=== PATIENT | male | born 1950 | race Caucasian/White ===

== ENCOUNTER 2018-06-14 07:44 | Observation (INO) | payer OTHER ==
--- NOTE | 2018-06-14 08:38 | RAD ---
Exam: Chest one view HISTORY:Altered mental status Comparison: None FINDINGS: Lungs: Mild pleural/parenchymal density at the inferior left chest Cardiac silhouette: Normal size Pulmonary vessels: Normal Pleural Spaces: Mild pleural-based density at the inferior left chest Pneumothorax: None Osseous abnormalities: None of acuity. IMPRESSION: Mild left basilar density, which could relate small volume pleural fluid with adjacent at electasis and/or pneumonia. Alternatively this could relate to an area of pleural scarring. Correlation with prior imaging would be helpful to evaluate for stability. Otherwise follow-up 2 view chest series may be obtained to document resolution.
[2018-06-14 08:39] LABS: ALT (SGPT) 16 U/L (8-55); AST (SGOT) 19 U/L (5-34); Albumin 3.7 g/dL (3.4-4.8); Alkaline Phosphatase 51 U/L (40-150); Anion Gap 10 mmol/L (10-20); BUN (Urea Nitrogen) 13 mg/dL (8.4-25.7); Bilirubin, Total 0.8 mg/dL (0.2-1.2); Calc. Creatinine Clearance 0 mL/min (70-130); Calcium 8.7 mg/dL (7.8-10.44); Carbon Dioxide 26 mmol/L (23-31); Chloride 102 mmol/L (98-107); Estimated GFR-MDRD 47; Globulin 2.4 g/dL (2.4-3.5); Glucose 103 mg/dL (80-115); Protein, Total 6.1 g/dL (5.8-8.1); Sodium 134 mmol/L (136-145)
[2018-06-14 08:47] LABS: #Eosinphils 0.1 thou/uL (0.0-0.7); #Lymphocytes 1.1 thou/uL (1.20-3.40); #Monocytes 0.7 thou/uL (0.11-0.59); #Neutrophils 5.6 thou/uL (1.40-6.50); %Basophils 0.4 % (0.0-1.0); %Eosinophils 0.9 % (0.0-10.0); %Lymphocytes 14.6 % (21.0-51.0); %Neutrophils 75.1 % (42.0-75.0); Hemoglobin 15.4 g/dL (14.0-18.0); Mean Corpuscular HGB CONC 32.3 g/dL (32.0-36.0); Mean Corpuscular Hemoglobin 30.1 pg (27.0-31.0); Mean Corpuscular Volume 93.2 fL (78.0-98.0); Mean Platelet Volume 6.8 fL (7.4-10.4); Platelet Count 165 thou/uL (130-400); RBC Distribution Width 14.1 % (11.5-14.5); Red Blood Cell (RBC) Count 5.11 mill/uL (4.70-6.10); White Blood Cell (WBC) Count 7.5 thou/uL (4.8-10.8)
--- NOTE | 2018-06-14 08:57 | CT ---
CT Brain WO Con: 06/14/2018 8:17 AM CLINICAL HISTORY: Altered mental status. COMPARISON: None. FINDINGS: Hemorrhage: None. Ventricular system: Normal in size and morphology for the patient's age. Cerebral parenchyma: Normal Midline shift: None. Mass: No mass effect. Calvarium: Normal. Visualized Paranasal sinuses: Scattered mild inflammatory mucosal thickening. IMPRESSION: No acute intracranial abnormalities.
[2018-06-14] MEDS ORDERED: hydrALAZINE 20 MG/ML VIAL SLOW IVP PRN (09:44)
[2018-06-14] MEDS ORDERED: levETIRAcetam 500 MG TAB PO SCH (09:45)
[2018-06-14] MEDS ORDERED: Ondansetron PF 4 MG/2 ML Vial IVP PRN (09:48)
[2018-06-14] MEDS ORDERED: Bisacodyl 5 MG TAB PO PRN (09:48)
--- NOTE | 2018-06-14 10:22 | HP ---
PRIMARY CARE PROVIDER: Tash Brie Darling in [place], [place]. CHIEF COMPLAINT: Seizure. HISTORY OF PRESENT ILLNESS: Mr. Epperson is a pleasant 67-year-old gentleman, who was seen at [facility] on June 14, 2018. He is accompanied by his in the emergency room. He has a past medical history of hypertension and on-and-off headaches. Today, around 6:30 a.m., his felt him thrashing around in the bed. He occasionally has leg cramps, and she initially assumed that it was secondary to leg cramps. The tonic-clonic activity continued. She turned the light on and found that he was lying face down in the pillow, convulsing. She turned his head to one side and found that his eyes had rolled back and he was biting his tongue. He also urinated in the bed. The activity lasted 1-2 minutes. Following that, he was confused, did not know who he was or who his was. EMS was called. The postictal confusion lasted about 30 minutes. Mr. Epperson currently denies any chest pain, shortness of breath, fevers, or chills. He denies any nausea or vomiting. REVIEW OF SYSTEMS: All other systems reviewed and found to be negative. PAST MEDICAL HISTORY: Hypertension. SURGICAL HISTORY: 1. Right lung lobectomy for collapsed lung. 2. Hernia repair. SOCIAL HISTORY: Occasional alcohol use. No tobacco use or recreational drug use. FAMILY HISTORY: Heart disease in his mother. CODE STATUS: I discussed his code status. He is a full code. ALLERGIES: 1. CODEINE. 2. PENICILLIN. CURRENT MEDICATIONS: 1. Hydralazine 25 mg 2 times a day. 2. Losartan and hydrochlorothiazide 100/25 mg daily. 3. Aspirin 81 mg daily. 4. Pepcid 20 mg daily. PHYSICAL EXAMINATION: GENERAL: On examination, Mr. Epperson is awake and alert, not in acute distress. VITAL SIGNS: Blood pressure is 117/76, pulse 78, respiratory rate 16, and oxygen saturation 98% on room air. He is afebrile. EYES: No scleral icterus, no conjunctival pallor. ENT: Moist mucosal membranes, bilateral tongue bite. NECK: Supple, nontender, trachea is midline. RESPIRATORY: Accessory muscles of breathing are not active. Chest wall movements are symmetric bilaterally. Lungs are clear to auscultation without wheeze, rhonchi, or crepitations. CARDIOVASCULAR: S1 and S2 are heard, regular. Peripheral pulses palpable. No carotid bruit, no pericardial rub. ABDOMEN: Soft, nontender, bowel sounds are heard. NEUROLOGIC: Cranial nerves 2 through 12 are intact. Power is 5/5 in all 4 extremities. No focal motor or sensory deficits. Deep tendon reflexes 2+, plantars downgoing bilaterally. MUSCULOSKELETAL: Power is 5/5 in all 4 extremities. SKIN: No rashes or subcutaneous nodules. LYMPHATIC: No cervical lymphadenopathy. PSYCHIATRIC: Normal mood, normal affect, the patient is oriented to person, place, and time. LABORATORY DATA: Mr. Epperson's labs and investigations were reviewed. He has an unremarkable CBC, mildly decreased sodium of 134, normal potassium, normal blood urea nitrogen, creatinine elevated at 1.49, I do not have a baseline creatinine for him, normal LFTs, and normal troponin-I. CK is normal. He had CT scan of the brain, noncontrast, which did not show any acute intracranial abnormality. He also had chest x-ray, which showed mild left basilar density, which could correlate small volume pleural fluid with adjacent atelectasis and/or pneumonia. Radiologist felt that this could relate to an area of pleural scarring. ASSESSMENT AND PLAN: Mr. Epperson is a pleasant 67-year-old gentleman, who was seen at [facility] on June 14, 2018. His problem list includes: 1. Seizure: Mr. Epperson is presenting with new onset tonic-clonic seizures. He will be admitted to the hospital for further management. We will check MRI and EEG. We will start him on Keppra. We will consult Neurology Service for opinion and help with management. 2. Acute kidney injury: The patient denies having any kidney problems in the past. The renal insufficiency is presumably new. We will provide hydration and recheck creatinine. 3. Hyponatremia: Mild, we will recheck sodium. 4. Hypertension: We will monitor vital signs and titrate antihypertensives as needed. We will hold losartan/hydrochlorothiazide for now given his renal insufficiency. Many thanks for allowing me to participate in your patient's care. Please feel free to contact me with any questions or concerns. LEVEL OF RISK: Moderate. LEVEL OF COMPLEXITY: Moderate. Job ID: [id number]
[2018-06-14 10:26] LABS: Bilirubin Negative (Negative); Blood, Urine Negative (Negative); Clarity CLEAR (Clear); Glucose, Urine (Dipstick) Negative (Negative); Leukocyte Negative (Negative); Nitrite Negative (Negative); Protein, Urine (Dipstick) 30 mg/dL (Neg-Trace); Specific Gravity, Urine 1.016 (1.002-1.036); Urobilinogen 0.2 mg/dL (0.2-1.0)
[2018-06-14 10:28] LABS: Bacteria/HPF None Seen HPF (None Seen); Hyaline Casts/LPF 0-3 HYALINE CAST LPF (0-3 Hyaline); Pathc Cast-AUWi Flag 0.54 (0-2.49); RBC/HPF 0-3 HPF (0-3); Squamous Epithelial None Seen HPF (0-3); WBC/HPF 0-3 HPF (0-3)
[2018-06-14 10:52] VITALS: BMI 29.3
[2018-06-14] MEDS ORDERED: Losartan/Hydrochlorothiazide 100 mg/25 mg Tablet PO SCH (12:00)
[2018-06-14] MEDS ORDERED: hydrALAZINE 25 MG TAB PO SCH (12:00)
[2018-06-14] MEDS ORDERED: Aspirin Chewable 81 MG TAB PO SCH (12:00)
[2018-06-14] MEDS: Sodium Chloride 0.9% 1,000 ML IV SCH ×2 (12:17→21:06)
[2018-06-14 12:28] LABS: Medtox Reader # READER 1
[2018-06-14 12:29] LABS: Amphetamine Not Detected (NotDetected); Barbiturates Screen Not Detected (NotDetected); Benzodiazepine Screen Not Detected (NotDetected); Cocaine Metabolite Screen Not Detected (NotDetected); Medtox Control Line Valid? VALID (VALID); Methadone Not Detected (NotDetected); Methamphetamine Not Detected (NotDetected); Opiate Screen Not Detected (NotDetected); Oxycodone Screen Not Detected (NotDetected); Phencyclidine (PCP) Not Detected (NotDetected); THC/Cannabinoid Screen Not Detected (NotDetected); Tricyclic Screen Not Detected (NotDetected)
[2018-06-14] MEDS: Acetaminophen 325 MG TAB PO PRN (21:06)
[2018-06-14] MEDS: levETIRAcetam 500 MG TAB PO SCH (21:06)
[2018-06-15 05:39] LABS: #Eosinphils 0.1 thou/uL (0.0-0.7); #Lymphocytes 1.7 thou/uL (1.20-3.40); #Monocytes 0.8 thou/uL (0.11-0.59); #Neutrophils 4.4 thou/uL (1.40-6.50); %Basophils 0.2 % (0.0-1.0); %Eosinophils 1.8 % (0.0-10.0); %Lymphocytes 23.7 % (21.0-51.0); %Monocytes 11.8 % (0.0-10.0); %Neutrophils 62.5 % (42.0-75.0); Hemoglobin 14.6 g/dL (14.0-18.0); Mean Corpuscular HGB CONC 33.3 g/dL (32.0-36.0); Mean Corpuscular Hemoglobin 31.4 pg (27.0-31.0); Mean Corpuscular Volume 94.2 fL (78.0-98.0); Mean Platelet Volume 6.9 fL (7.4-10.4); Platelet Count 143 thou/uL (130-400); Red Blood Cell (RBC) Count 4.65 mill/uL (4.70-6.10)
[2018-06-15 06:21] LABS: Anion Gap 11 mmol/L (10-20); BUN (Urea Nitrogen) 10 mg/dL (8.4-25.7); Calc. Creatinine Clearance 77 mL/min (70-130); Calcium 8.2 mg/dL (7.8-10.44); Carbon Dioxide 22 mmol/L (23-31); Chloride 107 mmol/L (98-107); Estimated GFR-MDRD 57; Glucose 84 mg/dL (80-115); Potassium 4.4 mmol/L (3.5-5.1); Sodium 136 mmol/L (136-145)
[2018-06-15] MEDS: Sodium Chloride 0.9% 1,000 ML IV SCH ×2 (06:31→17:40)
[2018-06-15] MEDS ORDERED: Lorazepam 2 MG/ML VIAL SLOW IVP PRN (08:40)
[2018-06-15] MEDS ORDERED: Aspirin Chewable 81 MG TAB PO SCH ×2 (09:00)
[2018-06-15] MEDS ORDERED: Multivitamin W/ Minerals 1 TAB PO SCH (09:00)
[2018-06-15] MEDS ORDERED: Prevnar 13-Val Conj/PF 0.5 ML SYRINGE IM ONE (09:00)
[2018-06-15] MEDS ORDERED: Losartan/Hydrochlorothiazide 100 mg/25 mg Tablet PO SCH (09:00)
[2018-06-15] MEDS ORDERED: hydrALAZINE 25 MG TAB PO SCH ×2 (09:00)
[2018-06-15] MEDS: levETIRAcetam 500 MG TAB PO SCH (09:32)
--- NOTE | 2018-06-15 11:29 | MRI ---
MRI BRAIN WITH AND WITHOUT IV CONTRAST: HISTORY: New-onset seizure. FINDINGS: No evidence of infarct, hemorrhage, mass, midline shift, or abnormal extraaxial fluid collections is seen. No restricted diffusion is noted. No significant signal abnormalities are seen on the highly sensitive FLAIR images. No abnormal postcontrast enhancement is noted. There is mucosal disease in the paranasal sinuses. The ventricular size is appropriate and the basilar cisterns patent. IMPRESSION: No evidence of significant intracranial abnormalities. POS: TPC
[2018-06-15] MEDS: Acetaminophen 325 MG TAB PO PRN (12:46)
[2018-06-15 15:54] VITALS: BP 124/75; TEMP 97.9
--- NOTE | 2018-06-15 23:59 | CON ---
DATE OF CONSULTATION: 06/15/2018 CONSULTING PHYSICIAN: Hospitalist Services. IMPRESSION: 1. New onset seizure. 2. History of bacterial meningitis. PLAN: 1. Keppra 500 mg twice daily. 2. Office followup. 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 He was sleeping when his found him having a tonoclonic seizure. He awoke in about 30 minutes. He had no prodromal sensation. He has never had anything like this in the past. He had bacterial meningitis treated in [place] about 2 years ago. His MRI of the brain was unremarkable. His EEG did not show any epileptiform discharges. Given his occupation, he was more inclined take an anticonvulsant to avoid further events. PAST MEDICAL HISTORY: Bacterial meningitis. ALLERGIES: 1. CODEINE. 2. IODINE. 3. SULFA. 4. PENICILLIN. FAMILY HISTORY: Noncontributory. REVIEW OF SYSTEMS: Ten systems review of systems otherwise unremarkable. PHYSICAL EXAMINATION: GENERAL: He is a healthy-appearing middle-aged man, in no distress. VITAL SIGNS: Stable. He is afebrile. HEENT: Within normal limits. NECK: Supple. EXTREMITIES: No cyanosis or edema. NEUROLOGIC: He is alert and appropriate. His speech is fluent and clear. His exam is nonfocal. LABORATORY DATA: CBC, serum chemistries were unremarkable. SUMMARY: He is a middle-aged gentleman with a new onset of nocturnal seizure. He prefers to take anticonvulsants rather than wait to see, if there is going to be a second event. I would be happy to follow up with him as an outpatient. Job ID: [id number]
--- NOTE | 2018-06-16 02:11 | DIS ---
DATE OF ADMISSION: 06/14/2018 DATE OF DISCHARGE: 06/15/2018 ALLERGIES: CODEINE AND PENICILLINS. CHIEF COMPLAINT: Seizure. FINAL DIAGNOSES: 1. Grand mal seizure, 1st occurrence, resolved. 2. Acute renal insufficiency, improved, questionably secondary to angiotensin receptor lennox. 3. Hypertension. 4. Hypogonadism/low testosterone. 5. Mild hyponatremia, resolved. PROCEDURES PERFORMED: None. LABORATORY RESULTS: White blood cell count 7.0, hemoglobin 14.6, hematocrit 43.8, MCV 94.2. Sodium is 136, potassium 4.4, chloride 107, carbon dioxide 22, anion gap 11, BUN 10, creatinine 1.27, improved from 1.49, GFR 67, glucose 84, calcium 8.2. Liver function tests all within normal limits. Troponin less than 0.010. Tox screen was negative. UA showed mild proteinuria. IMAGING RESULTS: Brain CT, no acute intracranial abnormalities. Chest x-ray, mild left basilar density, possibly small volume pleural fluid versus atelectasis versus pleural scarring. Brain MRI, no evidence of significant intracranial abnormality. CONSULTATIONS: Dr. Allen of Neurology. VITAL SIGNS: Temperature 97.9, pulse 72, BP 124/75, O2 saturation 95% on room air, and respirations 16. HOSPITAL COURSE: The patient is a pleasant 67-year-old, male who presented to the hospital after suffering a seizure at home. Yesterday around 6:30 a.m., his felt him thrashing around in bed. She turned on the light and found him lying face down with evidence of convulsing and tonic colonic activity. She turned his head to one side and found that his eyes had rolled back and he was biting his tongue. He did lose control of his bladder evidence by urinating in the bed. Total activity lasted 1 to 2 minutes. He did have a postictal confusion that lasted about 30 minutes. EMS did bring him to the hospital where the patient was started on Keppra. He has had no further seizure activity since his admission. He was seen in consultation with Dr. Allen who did agree with a trial of Keppra 500 mg p.o. b.i.d. EEG and MRI were negative. The patient has no complaints to me today. He denies chest pain or shortness of breath. He denies any nausea or vomiting. His appetite has been good. His losartan was stopped secondary to creatinine of 1.4 on arrival. His creatinine did trend down to 1.2. His blood pressure has been well controlled throughout his stay with readings of 120 systolic. He has been cleared for discharge by Neurology. PHYSICAL EXAMINATION: GENERAL: The patient is awake, alert, and oriented. He appears well and has no acute distress. HEENT: Atraumatic and normocephalic. Eye movements intact. NECK: Supple. No lymphadenopathy. No JVD. Trachea is midline. RESPIRATORY: Regular respiratory rate and pattern. Clear to auscultation bilaterally. CV: S1 and S2. Regular rate and rhythm. No appreciable murmurs, rubs, or gallops. GI: Soft and nontender. Normal bowel sounds. PERIPHERAL VASCULAR: No lower extremity pitting edema. +2 DP pulses bilaterally. MUSCULOSKELETAL: No joint effusion or swelling. NEUROLOGIC: Cranial nerves II through XII are intact. No focal deficits. SKIN: Warm and dry. No discoloration. CONDITION AT DISCHARGE: Stable. DISCHARGE MEDICATIONS: 1. Aspirin 81 mg daily. 2. Hydralazine 25 mg one tablet daily. 3. Multivitamin one tablet daily. 4. Testosterone 200 mg IM as directed every 3 months. 5. New medication will be Keppra 500 mg tablet one tablet p.o. b.i.d. 6. He has been instructed to hold his losartan indefinitely. DISCHARGE DISPOSITION: Home. PLAN: As mentioned, the patient will continue his Keppra. He has been counseled extensively to monitor his blood pressure at home, and follow up with his PCP regarding alternatives to losartan. He will also follow up with Neurology. All questions answered to the patient's satisfaction. Care discussed with Dr. Garcia who agrees with the above. Job ID: [id number]
--- NOTE | 2018-06-17 10:12 | EEG ---
Referring Physician: Jenny BECK EEG # [id number] TEST TYPE: ROUTINE PORTABLE INPATIENT REPORT: AN EEG USING THE INTERNATIONAL TEN-TWENTY SYSTEM OF ELECTRODE PLACEMENT WAS PERFORMED. The waking background is an 8-9 hertz Alpha frequency. The patient remained awake throughout the study. Hyperventilation and photic stimulation were unremarkable. No epileptiform features were seen. IMPRESSION: THIS IS A NORMAL AWAKE EEG. Wax Machine Operator: JACIEL Director Network Development: [email or web address]
== END 2018-06-15 18:35 | disposition home or self-care (01) ==
LOC: ERS 07:44 → 2SE 10:30
PROVIDERS: ADMIT Internal Medicine; ATTEND Internal Medicine
DX: G40.409 Other generalized epilepsy and epileptic syndromes, not intractable, without status epilepticus (principal); I10 Essential (primary) hypertension; N17.9 Acute kidney failure, unspecified; E87.1 Hypo-osmolality and hyponatremia; E29.1 Testicular hypofunction; Z90.2 Acquired absence of lung [part of]; Z88.0 Allergy status to penicillin; Z88.5 Allergy status to narcotic agent; Z79.82 Long term (current) use of aspirin; Z79.899 Other long term (current) drug therapy; Z91.041 Radiographic dye allergy status; Z88.2 Allergy status to sulfonamides
CPT/HCPCS: 36415; 70450; 70553; 71045; 80048; 80053; 80306; 81003; 81015; 82550; 84484; 85025; 90471; 90670; 93005; 95816; 95819; 96360; 96361; 96374; G0009; G0378; J2060

== ENCOUNTER 2023-07-22 10:19 | Inpatient (IN) | payer BC, MEDICARE ==
[2023-07-22 10:52] LABS: #Basophils Less than 0.03 10x3/uL (0.0-0.2); %Basophils 0.1 % (0.0-1.0); %Eosinophils 0.2 % (0.0-10.0); %Lymphocytes 4.2 % (21.0-51.0); %Monocytes 5.7 % (0.0-10.0); %Neutrophils 89.3 % (42.0-75.0); Hemoglobin 15.8 g/dL (14.0-18.0); Mean Corpuscular HGB CONC 33.6 g/dL (32.0-36.0); Mean Corpuscular Volume 86.4 fL (78.0-98.0); Mean Platelet Volume 8.8 fL (7.4-10.4); Platelet Count 299 10x3/uL (130-400); RBC Distribution Width 13.8 % (11.5-14.5); Red Blood Cell (RBC) Count 5.44 mill/uL (4.70-6.10)
[2023-07-22 11:58] LABS: Lipase 4654 U/L (8-78)
[2023-07-22 12:09] LABS: ALT (SGPT) 177 U/L (8-55); AST (SGOT) 255 U/L (5-34); Albumin 3.3 g/dL (3.4-4.8); Alkaline Phosphatase 282 U/L (40-110); Anion Gap 12 mmol/L (10-20); BUN (Urea Nitrogen) 11 mg/dL (8.4-25.7); Bilirubin, Total 2.8 mg/dL (0.2-1.2); Calc. Creatinine Clearance 0 mL/min (70-130); Calcium 9.5 mg/dL (7.8-10.44); Carbon Dioxide 23 mmol/L (23-31); Chloride 103 mmol/L (98-107); Estimated GFR 65; Globulin 3.7 g/dL (2.4-3.5); Glucose 96 mg/dL (83-110); Potassium 4.3 mmol/L (3.5-5.1); Sodium 134 mmol/L (136-145)
[2023-07-22] MEDS ORDERED: Acetaminophen 325 MG TAB ONE (12:43)
[2023-07-22] MEDS ORDERED: Ondansetron PF 4 MG/2 ML Vial ONE (12:43)
[2023-07-22] MEDS ORDERED: Aspirin Chewable 81 MG TAB ONE (12:43)
[2023-07-22 13:58] LABS: Troponin I Less than 0.010 ng/mL (< 0.028)
[2023-07-22] MEDS ORDERED: Ondansetron PF 4 MG/2 ML Vial IVP PRN (14:07)
[2023-07-22] MEDS ORDERED: Calcium Carbonate 500 MG ChewTAB PO PRN (14:07)
[2023-07-22] MEDS ORDERED: metroNIDAZOLE 500 MG (100 mL) BAG ONE (14:22)
[2023-07-22] MEDS ORDERED: Ciprofloxacin Lactate D5W 400 mg (200 mL) BAG ONE (14:22)
[2023-07-22] MEDS ORDERED: Sodium Chloride 0.9% 1,000 ML IV SCH (14:59)
[2023-07-22] MEDS: Sodium Chloride 0.9% 1,000 ML IV SCH (16:51)
[2023-07-22] MEDS: Lidocaine 2% Viscous 10 mL, Alum & Magn 30 mL SSW SCH (16:55)
[2023-07-22] MEDS: metroNIDAZOLE 500 MG in Premix 1 BAG IVPB SCH (21:09)
[2023-07-22] MEDS: hydrALAZINE 25 MG TAB PO SCH (21:09)
[2023-07-22] MEDS: levETIRAcetam 500 MG TAB PO SCH (21:09)
[2023-07-23] MEDS: Ciprofloxacin Lactate/D5W 400 MG in Premix 1 BAG IVPB SCH (01:21)
[2023-07-23] MEDS: Acetaminophen 325 MG TAB PO PRN (05:35)
[2023-07-23 06:07] LABS: #Basophils Less than 0.03 10x3/uL (0.0-0.2); %Basophils 0.2 % (0.0-1.0); %Eosinophils 0.4 % (0.0-10.0); %Lymphocytes 7.2 % (21.0-51.0); %Monocytes 5.9 % (0.0-10.0); %Neutrophils 85.6 % (42.0-75.0); Hemoglobin 14.4 g/dL (14.0-18.0); Mean Corpuscular HGB CONC 33.5 g/dL (32.0-36.0); Mean Corpuscular Hemoglobin 28.8 pg (27.0-31.0); Mean Platelet Volume 9.1 fL (7.4-10.4); Platelet Count 261 10x3/uL (130-400); RBC Distribution Width 13.7 % (11.5-14.5)
[2023-07-23 06:37] LABS: ALT (SGPT) 176 U/L (8-55); AST (SGOT) 155 U/L (5-34); Albumin 2.8 g/dL (3.4-4.8); Alkaline Phosphatase 268 U/L (40-110); Anion Gap 13 mmol/L (10-20); BUN (Urea Nitrogen) 14 mg/dL (8.4-25.7); Bilirubin, Total 5.7 mg/dL (0.2-1.2); Calc. Creatinine Clearance 0 mL/min (70-130); Calcium 9.2 mg/dL (7.8-10.44); Carbon Dioxide 22 mmol/L (23-31); Chloride 104 mmol/L (98-107); Estimated GFR 67; Globulin 3.3 g/dL (2.4-3.5); Glucose 83 mg/dL (83-110); Lipase 150 U/L (8-78); Potassium 4.4 mmol/L (3.5-5.1); Protein, Total 6.1 g/dL (5.8-8.1); Sodium 135 mmol/L (136-145)
[2023-07-23 08:03] LABS: Influenza A by NAA Not Detected (NotDetected); Influenza B by NAA Not Detected (NotDetected); SARS-CoV-2 NAA Rapid Test Not Detected (NotDetected)
[2023-07-23] MEDS: Amlodipine 5 MG TAB PO SCH (08:56)
[2023-07-23] MEDS: Pantoprazole 40 MG VIAL IVP SCH (08:57)
[2023-07-23] MEDS: Enoxaparin 40 MG (0.4 mL) SYRINGE SC SCH (08:58)
[2023-07-23] MEDS ORDERED: Non-Formulary Item 1 EACH (Tadalafil [Tadalafil] 10 MG Tablet) PO SCH (09:00)
[2023-07-23] MEDS ORDERED: Indomethacin 50 MG SUPP ONE (12:13)
[2023-07-23] MEDS ORDERED: Iopamidol 30 ML ONE (12:14)
[2023-07-23] MEDS ORDERED: fentaNYL PF 100 MCG/2 ML SYRINGE ONE (12:15)
[2023-07-23] MEDS ORDERED: PROPOFOL 20 ML ONE (12:15)
[2023-07-23] MEDS ORDERED: Ondansetron PF 4 MG/2 ML Vial ONE (12:16)
[2023-07-23] MEDS ORDERED: Rocuronium Bromide 10 MG/ML (10ML VIAL) ONE (12:16)
[2023-07-23] MEDS ORDERED: Dexamethasone 4 mg/ml Vial ONE (12:16)
[2023-07-23] MEDS ORDERED: Glycopyrrolate 0.2 MG/ML 5 ML SYRINGE ONE (14:33)
[2023-07-23] MEDS ORDERED: Ketamine In 0.9 % NaCl 50 MG/5 ML SYRINGE ONE (14:51)
[2023-07-23] MEDS ORDERED: Benzocaine/Menthol 1 LOZ LOZ PO PRN (20:41)
[2023-07-24] MEDS: Indocyanine Green 25 MG/10 ML VIAL IVP SCH (07:23)
[2023-07-24] MEDS ORDERED: PROPOFOL 20 ML ONE (08:05)
[2023-07-24] MEDS ORDERED: fentaNYL PF 100 MCG/2 ML SYRINGE ONE ×3 (08:05→11:41)
[2023-07-24] MEDS ORDERED: SUGAMMADEX SODIUM 200 MG/2 ML VIAL ONE (08:05)
[2023-07-24] MEDS ORDERED: Dexamethasone 4 mg/ml Vial ONE (08:06)
[2023-07-24] MEDS ORDERED: Rocuronium Bromide 10 MG/ML (10ML VIAL) ONE (08:06)
[2023-07-24] MEDS ORDERED: Ondansetron PF 4 MG/2 ML Vial ONE ×2 (08:06→11:30)
[2023-07-24] MEDS ORDERED: Lidocaine 1% PF 5 ML VIAL ONE (08:06)
[2023-07-24] MEDS ORDERED: Bupivacaine 0.25% HCL 30 ML VIAL ONE (08:50)
[2023-07-24] MEDS ORDERED: EPINEPHrine 1 MG/ML VIAL ONE (08:50)
[2023-07-24] MEDS ORDERED: Indocyanine Green 25 MG/10 ML VIAL IVP SCH (09:00)
[2023-07-24] MEDS ORDERED: CEFAZOLIN 1 GM VIAL ONE (09:32)
[2023-07-24] MEDS ORDERED: Ondansetron HCl/PF 4 MG/2 ML Vial IVP PRN (09:37)
[2023-07-24] MEDS ORDERED: Promethazine HCl 25 MG/ML VIAL IM PRN (09:37)
[2023-07-24] MEDS ORDERED: fentaNYL 50 mcg/mL 1 mL Vial ONE (09:38)
[2023-07-24] MEDS ORDERED: HYDROmorphone 0.5 MG/0.5 ML SYRINGE ONE ×3 (11:23→11:41)
[2023-07-24] MEDS: Lactated Ringer's 1,000 ML IV SCH (12:31)
[2023-07-24] MEDS ORDERED: Glucagon 1 MG/ML KIT IM PRN (12:57)
[2023-07-24] MEDS ORDERED: Dextrose 50% Abboject 50 ML SYRINGE SLOW IVP PRN (12:57)
[2023-07-24] MEDS ORDERED: Dextrose 5% in Water 1,000 ML IV PRN (12:57)
[2023-07-24] MEDS ORDERED: Mag-Al 1200 mg/1200 mg/30 ML UDCUP PO PRN (12:57)
[2023-07-24] MEDS ORDERED: Calcium Carbonate 500 MG ChewTAB PO PRN (12:57)
[2023-07-24] MEDS ORDERED: Ondansetron PF 4 MG/2 ML Vial IVP PRN (12:57)
[2023-07-24] MEDS ORDERED: HYDROcodone/Acetaminophen 10/325 mg Tablet PO PRN (12:57)
[2023-07-24] MEDS ORDERED: Ipratropium/Albuterol 3 ML NEB NEB PRN (12:57)
[2023-07-24 14:10] LABS: #Basophils Less than 0.03 10x3/uL (0.0-0.2); #Eosinphils Less than 0.03 10x3/uL (0.0-0.7); %Basophils 0.1 % (0.0-1.0); %Lymphocytes 2.7 % (21.0-51.0); %Monocytes 3.7 % (0.0-10.0); %Neutrophils 93.1 % (42.0-75.0); Hematocrit 41.8 % (42.0-52.0); Hemoglobin 13.8 g/dL (14.0-18.0); Mean Corpuscular Hemoglobin 28.9 pg (27.0-31.0); Mean Corpuscular Volume 87.4 fL (78.0-98.0); Platelet Count 268 10x3/uL (130-400); RBC Distribution Width 13.7 % (11.5-14.5); Red Blood Cell (RBC) Count 4.78 mill/uL (4.70-6.10)
[2023-07-24] MEDS: D5 1/2 NS w/20 mEq KCL 1,000 ML IV SCH (14:11)
[2023-07-24] MEDS: LevoFLOXacin 750 mg/D5W 750 MG in Premix 1 BAG IVPB SCH (14:12)
[2023-07-24 14:31] LABS: ALT (SGPT) 116 U/L (8-55); AST (SGOT) 80 U/L (5-34); Albumin 2.8 g/dL (3.4-4.8); Alkaline Phosphatase 204 U/L (40-110); Anion Gap 13 mmol/L (10-20); BUN (Urea Nitrogen) 15 mg/dL (8.4-25.7); Bilirubin, Total 0.9 mg/dL (0.2-1.2); Calc. Creatinine Clearance 0 mL/min (70-130); Calcium 8.5 mg/dL (7.8-10.44); Carbon Dioxide 24 mmol/L (23-31); Chloride 102 mmol/L (98-107); Estimated GFR 72; Globulin 3.2 g/dL (2.4-3.5); Glucose 120 mg/dL (83-110); Potassium 3.9 mmol/L (3.5-5.1); Sodium 135 mmol/L (136-145)
[2023-07-24] MEDS: Senokot S 8.6-50 MG TAB PO PRN (14:53)
[2023-07-24] MEDS ORDERED: Morphine 2 MG/ML VIAL SLOW IVP PRN (17:55)
[2023-07-24] MEDS: Ketorolac Tromethamine 30 MG (1 mL) VIAL IVP SCH (18:04)
[2023-07-24] MEDS: Famotidine 20 MG TAB PO SCH (20:20)
[2023-07-24] MEDS: Docusate 100 MG CAP PO SCH (20:20)
[2023-07-24] MEDS: Saccharomyces boulardii 250 MG CAP PO SCH (20:20)
[2023-07-25 05:52] LABS: #Basophils Less than 0.03 10x3/uL (0.0-0.2); #Eosinphils Less than 0.03 10x3/uL (0.0-0.7); %Basophils 0.2 % (0.0-1.0); %Eosinophils 0.1 % (0.0-10.0); %Lymphocytes 10.4 % (21.0-51.0); %Monocytes 7.6 % (0.0-10.0); Hematocrit 38.9 % (42.0-52.0); Hemoglobin 12.7 g/dL (14.0-18.0); Mean Corpuscular HGB CONC 32.6 g/dL (32.0-36.0); Mean Corpuscular Volume 88.8 fL (78.0-98.0); Mean Platelet Volume 9.3 fL (7.4-10.4); Platelet Count 264 10x3/uL (130-400); RBC Distribution Width 13.9 % (11.5-14.5); Red Blood Cell (RBC) Count 4.38 mill/uL (4.70-6.10)
[2023-07-25 06:23] LABS: ALT (SGPT) 80 U/L (8-55); AST (SGOT) 49 U/L (5-34); Albumin 2.5 g/dL (3.4-4.8); Alkaline Phosphatase 158 U/L (40-110); Anion Gap 12 mmol/L (10-20); BUN (Urea Nitrogen) 11 mg/dL (8.4-25.7); Bilirubin, Total 1.1 mg/dL (0.2-1.2); Calc. Creatinine Clearance 0 mL/min (70-130); Calcium 8.1 mg/dL (7.8-10.44); Carbon Dioxide 22 mmol/L (23-31); Chloride 105 mmol/L (98-107); Estimated GFR 85; Globulin 2.9 g/dL (2.4-3.5); Glucose 98 mg/dL (83-110); Protein, Total 5.4 g/dL (5.8-8.1); Sodium 135 mmol/L (136-145)
[2023-07-25 12:08] VITALS: BP 131/69; TEMP 99.1
== END 2023-07-25 13:10 | disposition home or self-care (01) | DRG 853 ==
LOC: ERS 10:19 → SUATTDRO 10:19 → T4-A 14:47
PROVIDERS: ADMIT Internal Medicine; ATTEND Internal Medicine
PROC: 3E03329 Introduction of Other Anti-infective into Peripheral Vein, Percutaneous Approach (ICD-10-PCS; 2023-07-22)
PROC: 0FT44ZZ Resection of Gallbladder, Percutaneous Endoscopic Approach (ICD-10-PCS; principal; 2023-07-23)
PROC: 8E0W4CZ Robotic Assisted Procedure of Trunk Region, Percutaneous Endoscopic Approach (ICD-10-PCS; 2023-07-23)
PROC: 0FC98ZZ Extirpation of Matter from Common Bile Duct, Via Natural or Artificial Opening Endoscopic (ICD-10-PCS; 2023-07-23)
PROC: BF101ZZ Fluoroscopy of Bile Ducts using Low Osmolar Contrast (ICD-10-PCS; 2023-07-23)
PROC: 3E033XZ Introduction of Vasopressor into Peripheral Vein, Percutaneous Approach (ICD-10-PCS; 2023-07-24)
DX: A41.9 Sepsis, unspecified organism (principal); K85.10 Biliary acute pancreatitis without necrosis or infection; K80.62 Calculus of gallbladder and bile duct with acute cholecystitis without obstruction; I50.32 Chronic diastolic (congestive) heart failure; J98.11 Atelectasis; I13.0 Hypertensive heart and chronic kidney disease with heart failure and stage 1 through stage 4 chronic kidney disease, or unspecified chronic kidney disease; E87.1 Hypo-osmolality and hyponatremia; K57.30 Diverticulosis of large intestine without perforation or abscess without bleeding; G47.33 Obstructive sleep apnea (adult) (pediatric); N18.2 Chronic kidney disease, stage 2 (mild); N20.0 Calculus of kidney; N28.1 Cyst of kidney, acquired; N28.89 Other specified disorders of kidney and ureter; R74.01 Elevation of levels of liver transaminase levels; K44.9 Diaphragmatic hernia without obstruction or gangrene; G40.909 Epilepsy, unspecified, not intractable, without status epilepticus; Z88.0 Allergy status to penicillin; Z88.5 Allergy status to narcotic agent; Z79.82 Long term (current) use of aspirin; Z79.899 Other long term (current) drug therapy
CPT/HCPCS: 36415; 71045; 74177; 74330; 76705; 80053; 83605; 83690; 83735; 83880; 84484; 85025; 85379; 87040; 88304; 93005; 96361; 96374; 96375; C1713; C1889; C9113; J0171; J0665; J0690; J0744; J1100; J1170; J1650; J1885; J1956; J2405; J2704; J3010; J3480; J3490; J7050; Q9967

== ENCOUNTER 2023-09-11 10:07 | Outpatient (CLI) | payer BC, MEDICARE ==
[2023-09-11 11:04] LABS: #Basophils 0.04 10x3/uL (0.0-0.2); #Eosinphils 0.15 10x3/uL (0.0-0.5); #Monocytes 0.81 10x3/uL (0.0-1.1); %Basophils 0.6 % (0.0-2.0); %Eosinophils 2.4 % (0.0-6.0); %Lymphocytes 23.7 % (18.0-47.0); %Monocytes 12.9 % (0.0-10.0); %Neutrophils 60.2 % (40.0-75.0); Hematocrit 43.5 % (38.8-50.0); Hemoglobin 14.7 g/dL (13.5-17.5); Mean Corpuscular HGB CONC 33.8 g/dL (32.0-36.0); Mean Corpuscular Hemoglobin 29.6 pg (27.0-33.0); Mean Corpuscular Volume 87.5 fL (81.2-95.1); Mean Platelet Volume 9.2 fL (7.4-10.4); Platelet Count 154 10x3/uL (150-450); RBC Distribution Width 15.9 % (11.5-14.5); Red Blood Cell (RBC) Count 4.97 10x6/uL (4.32-5.72); White Blood Cell (WBC) Count 6.3 10x3/uL (3.5-10.5)
[2023-09-11 11:16] LABS: Anion Gap 9 mmol/L (10-20); BUN (Urea Nitrogen) 15 mg/dL (8.4-25.7); Calc. Creatinine Clearance 0 mL/min (70-130); Calcium 8.6 mg/dL (7.8-10.44); Carbon Dioxide 25 mmol/L (23-31); Chloride 107 mmol/L (98-107); Estimated GFR 62; Glucose 80 mg/dL (83-110); Potassium 4.3 mmol/L (3.5-5.1); Sodium 137 mmol/L (136-145)
== END 2023-09-11 10:08 | disposition home or self-care (01) ==
LOC: LABBT 10:07
PROVIDERS: ATTEND Surgery
DX: Z01.818 Encounter for other preprocedural examination (principal); K44.9 Diaphragmatic hernia without obstruction or gangrene
CPT/HCPCS: 80048; 85025; 93005; 93010

== ENCOUNTER 2023-09-11 11:11 | Outpatient (CLI) | payer BC, MEDICARE ==
[2023-09-11] MEDS ORDERED: E-Z-HD 98% W/W 340GM BOT (x-ray ONLY) ONE (11:18)
[2023-09-11] MEDS ORDERED: Barium Sulfate 96% 176 GM BOT (xray ONLY) ONE (11:18)
== END 2023-09-11 11:12 | disposition home or self-care (01) ==
LOC: RAD 11:11
PROVIDERS: ATTEND Surgery
DX: K44.9 Diaphragmatic hernia without obstruction or gangrene (principal)
CPT/HCPCS: 74220

== ENCOUNTER → 2023-09-16 | Day surgery (SDC) | payer BC, MEDICARE ==
[2023-09-11 10:28] VITALS: BMI 26.9
[~2023-09-16] MED LIST: Acetaminophen 500 MG TAB ONE; Bupivacaine 0.25% HCL 30 ML VIAL ONE; CEFAZOLIN 2 GM VIAL ONE; Dexamethasone 20 MG/5 ML VIAL ONE; EPINEPHrine 1 MG/ML VIAL ONE; Lidocaine 1% PF 5 ML VIAL ONE; Morphine 2 MG/ML VIAL ONE; Morphine 4 MG/ML VIAL ONE; Ondansetron PF 4 MG/2 ML Vial ONE; PHENYLEPHRINE-NS 100 MCG/ML 10 ML SYRINGE ONE; PROPOFOL 0 ML ONE; PROPOFOL 20 ML ONE; Propofol 500 MG/50 ML VIAL ONE; Rocuronium Bromide 10 MG/ML (10ML VIAL) ONE; SUGAMMADEX SODIUM 200 MG/2 ML VIAL ONE; Sodium Chloride 0.9% 100 ML ONE; ePHEDrine Sulfate 50 MG/10 ML VIAL ONE; fentaNYL 50 mcg/mL 1 mL Vial ONE; fentaNYL PF 100 MCG/2 ML SYRINGE ONE; traMADol HCl 50 MG TAB ONE
== END ==
LOC: SDC 06:10 → EDSTATUS 10:00
PROVIDERS: ATTEND Surgery
PROC: 0BQT4ZZ Repair Diaphragm, Percutaneous Endoscopic Approach (ICD-10-PCS; principal; 2023-09-16)
DX: K44.9 Diaphragmatic hernia without obstruction or gangrene (principal); I10 Essential (primary) hypertension; G40.909 Epilepsy, unspecified, not intractable, without status epilepticus; M10.9 Gout, unspecified; Z79.82 Long term (current) use of aspirin; Z79.899 Other long term (current) drug therapy; Z88.5 Allergy status to narcotic agent; Z88.0 Allergy status to penicillin; Z98.890 Other specified postprocedural states
CPT/HCPCS: C1781; J0171; J0665; J1100; J2270; J2272; J2405; J2704; J3010